=== PATIENT | male | born 1960 | race Caucasian/White ===

== ENCOUNTER 2020-09-27 06:53 | Outpatient (NON) | payer OTHER, SELFPAY ==
[2020-09-28 18:24] LABS: SARS-CoV-2 RNA PCR Positive
== END 2020-09-27 06:54 ==
LOC: ANHCOVIDDT 07:19
PROVIDERS: PCP Internal Medicine; Visit Provider Internal Medicine
DX: U07.1 COVID-19 (principal)
CPT/HCPCS: 87635; C9803; U0003

== ENCOUNTER 2021-08-05 17:45 | Emergency (ER) | payer OTHER, SELFPAY ==
--- NOTE | 2021-08-05 17:48 | ED.URI ---
HPI - URI/Sore Throat General Chief Complaint: Upper Respiratory Infection Stated Complaint: cough/sore throat Time Seen by Provider: 08/05/21 17:57 Source: patient and RN notes reviewed Mode of arrival: ambulatory Limitations: no limitations History of Present Illness HPI Narrative: 61-year-old male presents with concern for 1 week history of cough, chest congestion. He denies nasal congestion, rhinorrhea, ear pain, headache, nausea, vomiting, diarrhea. Denies body aches, chills, sweats, fever. Reports he started getting a sore throat today. He denies any [id number] intervention. Reports he was able to run 3 miles today. Reports he has been vaccinated for Covid and and has had Covid infection in the past. MD elicited complaint: cough and sore throat Related Data Home Medications Medication Instructions Recorded Confirmed tadalafil 5 mg tablet 5 mg PO DAILY 12/15/19 08/05/21 cholecalciferol (vitamin D3) 25 25 mcg PO DAILY 06/15/20 08/05/21 mcg (1,000 unit) capsule testosterone 30 mg/actuation (1.5 4 pump TOPICAL DAILY 06/15/20 08/05/21 mL) transderm solution metered pump Allergies Allergy/AdvReac Type Severity Reaction Status Date / Time No Known Allergies Allergy Verified 08/05/21 17:50 Review of Systems Review of Systems: CONSTITUTIONAL: Denies malaise, chills, sweats, or fever. EYES: Denies visual changes, redness, or discharge. ENT: Denies rhinorrhea, congestion, sinus pain, otalgia. Reports sore throat. CARDIOVASCULAR: Denies chest pain, palpitations, or edema. RESPIRATORY: Reports cough. Denies dyspnea. GASTROINTESTINAL: Denies abdominal pain, nausea, vomiting, diarrhea SKIN: Denies rash or itching. MUSCULOSKELETAL: Denies myalgia. NEUROLOGIC: Denies headache. All systems reviewed & are unremarkable except as noted in HPI and below PMFSH Family History Family History Father Patient's father is Social History Social History Smoking status: Never smoker Second hand tobacco smoke exposure: No Alcohol intake: current Drinks per week: 5 Substance use: never Comments At time of signature, agree with nursing past medical, surgical, social and family history. There is no relevant family history pertinent to the presenting complaint Exam Narrative: GENERAL: Well-appearing, well-nourished, and in no acute distress. HEAD: Normocephalic EYES: PERRLA, conjunctivae clear ENT: Nares clear, turbinates erythematous, clear discharge. Mucous membranes moist. TM pearly corbett with sharp light reflex bilaterally; no tragal tenderness. Oropharynx not erythematous without lesions. Tonsils not enlarged and without exudate, no drooling, no hoarseness, no trismus, uvula midline. NECK: Supple. No lymphadenopathy CHEST: Clear to auscultation, breath sounds equal. No wheezing, rhonchi, rales, or stridor. No respiratory distress, speaks in full sentences. HEART: Regular rate and rhythm. No murmur heard. SKIN: Warm, dry, no rash. NEURO: Alert and oriented x3. PSYCH: Normal mood and affect Course Course Emergency Course: Patient is aware of diagnosis, understands and agrees to treatment plan. Anticipatory guidance given. Patient agrees to follow-up as directed and is aware of reasons to seek care at the emergency department. Portions of this record may have been created with voice recognition software Vital Signs Vital signs: Reviewed. MDM - URI/Sore Throat MDM Narrative Medical decision making narrative: Differential diagnosis considered: Cross virus, strep pharyngitis, allergic rhinitis, upper respiratory tract infection, sinusitis, rhinosinusitis, nasopharyngitis. viral pharyngitis, otitis media, otitis externa, pneumonia, bronchitis, viral cough syndrome, viral syndrome, and influenza. Exam findings show no acute concerns or changes; patient is non-toxic appearing and is in no di
[2021-08-05 17:52] VITALS: BP 132/92; PULSE 107; RESP 16; TEMP 36.6; O2SAT 98
== END 2021-08-05 18:10 | disposition home or self-care (01) ==
PROVIDERS: Emergency Provider Nurse Practitioner
DX: J40 Bronchitis, not specified as acute or chronic (principal)
CPT/HCPCS: 99213; G0463

== ENCOUNTER 2022-10-13 11:43 | Emergency (ER) | payer OTHER, SELFPAY ==
[2022-10-13 12:17] VITALS: BP 134/98; PULSE 84; RESP 16; TEMP 37; O2SAT 98
[2022-10-13 12:18] VITALS: BP 134/98; PULSE 84; RESP 16; TEMP 37; O2SAT 98
--- NOTE | 2022-10-13 13:08 | ED.GENADULT ---
HPI - General Adult General Chief complaint: Abdominal Pain Stated complaint: Abdominal Pain Source: patient Mode of arrival: ambulatory Limitations: no limitations History of Present Illness HPI narrative: Patient presents for evaluation of diarrhea for the last 10 days. He states symptoms started 10 days after he was on a cruise to the [facility]. He has some abdominal cramping but denies overt pain per se. No fever, chills, nausea, vomiting. He is able to tolerate oral intake. Denies any rectal bleeding, blood/mucus in the stool. Last colonoscopy was about ten years ago and was normal. He drinks ETOH socially. No additional complaints or concerns. Related Data Home Medications Medication Instructions Recorded Confirmed tadalafil 5 mg tablet (Cialis) 5 mg PO DAILY 12/15/19 10/13/22 testosterone 30 mg/actuation (1.5 4 pump topical DAILY 06/15/20 10/13/22 mL) transderm solution metered pump Allergies Allergy/AdvReac Type Severity Reaction Status Date / Time No Known Allergies Allergy Verified 10/13/22 12:16 Review of Systems Review of Systems: CONSTITUTIONAL: Denies fever, chills, or sweats. EYES: Denies visual changes, redness, or discharge. ENT: Denies rhinorrhea, congestion, sore throat, or otalgia. CARDIOVASCULAR: Denies chest pain, palpitations, or edema. RESPIRATORY: Denies cough or dyspnea. GASTROINTESTINAL: Reports abdominal cramping. Denies abdominal pain. Reports diarrhea. Denies nausea, vomiting, rectal bleeding, blood or mucus in the stool. GENITOURINARY: Denies dysuria or hematuria. SKIN: Denies rash or itching. MUSCULOSKELETAL: Denies back pain, joint pain, or myalgia. NEUROLOGIC: Denies headache, numbness, dizziness, or weakness. PSYCHIATRIC: Denies anxiety or depression. [facility] Past Medical History Medical History Hypertension Hypogonadism Surgical History Surgical History History of prostate surgery Family History Family History Father Patient's father is Social History Social History (Updated 10/13/22 @ 13:11 by Eugenio Rascon, [facility], ) Smoking status: Never smoker Second hand tobacco smoke exposure: No Alcohol intake: current Drinks per week: 5 Substance use: never Living arrangements: with family Gender identity (if verbalized by the patient): Male Sexual Orientation (if Verbalized by the Patient): Straight or Heterosexual Spiritual care concerns: No Exam Narrative: GENERAL: Well-appearing, well-nourished, and in no acute distress. HEAD: Normocephalic, atraumatic. EYES: PERRLA and EOMI. ENT: Nares clear, no rhinorrhea or epistaxis. Mucous membranes moist. Oropharynx without tonsillar hypertrophy exudate or other lesions. Bilateral TMs pearly corbett nonbulging NECK: Supple. No adenopathy or masses. No carotid bruits or JVD CHEST: Clear to auscultation. No respiratory distress. No wheezes rales or rhonchi HEART: Regular rate and rhythm. No murmur heard. Normal peripheral pulses. ABDOMEN: Soft, nondistended, normal active bowel sounds. There is mild epigastric tenderness without rebound or guarding. No abdominal tenderness otherwise. EXTREMITIES: Normal range of motion. No edema. SKIN: Warm, dry, no rash. NEURO: No focal deficits. Alert and oriented x3. PSYCH: Normal mood and affect. Course Course Emergency Course: This is a 62-year-old male who presented for evaluation of abdominal cramping and diarrhea. Clinically his exam is consistent with colitis. I did offer a transfer him to the emergency department. He declined. I think this is reasonable as he does not have any significant tenderness to suggest complication such as perforation. he has no rebound or guarding. He has no fever. He is nontoxic appearing. He is able tolerate ora
== END 2022-10-13 13:13 | disposition home or self-care (01) ==
PROVIDERS: Emergency Provider Nurse Practitioner
DX: K52.9 Noninfective gastroenteritis and colitis, unspecified (principal); I10 Essential (primary) hypertension; E29.0 Testicular hyperfunction
CPT/HCPCS: 99213; G0463

== ENCOUNTER 2023-03-18 14:54 | Emergency (ER) | payer OTHER, SELFPAY ==
--- NOTE | 2023-03-18 14:57 | ED.URI ---
HPI - URI/Sore Throat General Chief Complaint: Upper Respiratory Infection Stated Complaint: cough, sore throat Time Seen by Provider: 03/18/23 14:57 Source: patient Mode of arrival: ambulatory Limitations: no limitations History of Present Illness HPI Narrative: Eliseo is a 62-year-old male patient presenting to the clinic today with complaints of cough x1 week. He reports symptoms began last week with a itchy scratchy throat, red/watery eyes, and cough. States that he was seen by his eye doctor and was prescribed steroids/antibiotic eye drop and his sore throat has resolved however he still has a cough. He was thinking that his symptoms were related to allergies however the cough is still lingering. Reports that the cough is productive at times with some slight yellow phlegm. No fever or chills. Denies any shortness of breath or chest pain. MD elicited complaint: cough, sore throat and nasal congestion Related Data Home Medications Medication Instructions Recorded Confirmed tadalafil 5 mg tablet (Cialis) 5 mg PO DAILY 12/15/19 03/18/23 testosterone 30 mg/actuation (1.5 4 pump topical DAILY 06/15/20 03/18/23 mL) transderm solution metered pump moxifloxacin 0.5 % eye drops 1 drp EACH EYE DAILY 03/18/23 03/18/23 prednisolone acetate 1 % eye 1 drp EACH EYE TID 03/18/23 03/18/23 drops,suspension Allergies Allergy/AdvReac Type Severity Reaction Status Date / Time No Known Allergies Allergy Verified 03/18/23 15:00 Review of Systems Review of Systems: Pertinent positives per HPI. Patient denies any fever, chills, rash, headache, visual changes, dizziness, shortness of breath, chest pain, palpitations, nausea, vomiting, diarrhea, constipation, abdominal pain, or any urinary issues. [facility] Past Medical History Medical History Hypertension Hypogonadism Surgical History Surgical History History of prostate surgery Family History Family History Father Patient's father is Social History Social History Smoking status: Never smoker Second hand tobacco smoke exposure: No Alcohol intake: current Drinks per week: 5 Substance use: never Living arrangements: with family Gender identity (if verbalized by the patient): Male Sexual Orientation (if Verbalized by the Patient): Straight or Heterosexual Spiritual care concerns: No Comments At the time of my signature, I reviewed and agree with the nursing past medical, surgical, social, and family history. There is no relevant family history pertinent to the patient complaint. Exam Narrative: General: Well-developed, well nourished, in no apparent distress Head: Normocephalic, atraumatic Eyes: Pupils equally round and reactive to light bilaterally, EOM intact, sclera and conjunctive clear, no discharge, lids normal Ears: TMs intact and clear, ear canals clear, no drainage, grossly hearing normal. Nose: Nares patent, clear nasal discharge, no inflammation, no sinus tenderness. Mouth: Oral pharynx without lesions or masses, good dentition, MMM. Postnasal drip Neck: Supple, trachea midline, no enlargement of anterior or posterior cervical nodes, no thyroid masses or goiter palpable. Cardio: Regular rate and rhythm, s1 and s2 normal, no murmur appreciated. Resp: Clear to auscultation bilaterally, no rhonchi, rales, wheezing or rubs Course Course Emergency Course: Portions of this record may have been created with voice recognition software. Level of Care: Express Care Visit Vital Signs Vital signs: Vital signs reviewed MDM - URI/Sore Throat MDM Narrative Medical decision making narrative: At the time of visit patient is resting comfortably on the exam table. I susp
[2023-03-18 15:00] VITALS: BP 148/93; PULSE 90; RESP 16; TEMP 36.9; O2SAT 98
[2023-03-18 15:01] VITALS: BP 148/93; PULSE 90; RESP 16; TEMP 36.9; O2SAT 98
== END 2023-03-18 15:12 | disposition home or self-care (01) ==
PROVIDERS: Emergency Provider Nurse Practitioner Family
DX: J06.9 Acute upper respiratory infection, unspecified (principal); R05.9 Cough, unspecified; I10 Essential (primary) hypertension
CPT/HCPCS: 99213; G0463